=== PATIENT | female | born 2000 | race Two or more races ===

== ENCOUNTER 2019-12-14 16:06 | Emergency (ER) | payer SELFPAY ==
[~2019-12-14] VITALS: Ht 157.5 cm; Wt 73.2 kg
[2019-12-14 17:23] LABS: BASOPHILS # (AUTO) 0.04 x10^3/uL (0-0.3); BASOPHILS % (AUTO) 0 % (0-1); EOSINOPHILS # (AUTO) 0.07 x10^3/uL (0-0.8); EOSINOPHILS % (AUTO) 1 % (1-7); LYMPHOCYTES # (AUTO) 2.66 x10^3/uL (1-6.1); LYMPHOCYTES % (AUTO) 19 % (22-44); MD NO; MEAN CORPUSCULAR HEMOGLOBIN 22.8 pg (27.0-34.8); MEAN CORPUSCULAR HGB CONC 31.7 g/dL (32.4-35.8); MEAN PLATELET VOLUME 8.5 fL (7.4-10.4); MONOCYTES # (AUTO) 0.97 x10^3/uL (0-1.4); MONOCYTES % (AUTO) 7 % (2-9); NEUTROPHILS # (AUTO) 10.57 x10^3/uL (1.8-8.0); NEUTROPHILS % (AUTO) 74 % (42-75); PLATELET COUNT 479 x10^3/uL (130-400); RED BLOOD COUNT 5.38 x10^6/uL (3.82-5.3); RED CELL DISTRIBUTION WIDTH 15.9 % (9.6-15.2)
[2019-12-14 17:38] LABS: ALANINE AMINOTRANSFERASE 22 U/L (12-78); ALBUMIN 3.8 g/dL (3.4-5.0); ANION GAP 8 mmol/L (5-15); CALCIUM 8.6 mg/dL (8.5-10.1); CHLORIDE 107 mmol/L (98-107); CREATININE 0.77 mg/dL (0.55-1.02)
[2019-12-14 17:42] LABS: ALKALINE PHOSPHATASE 81 U/L (45-117); BILIRUBIN,TOTAL 0.4 mg/dL (0.2-1.0); TOTAL PROTEIN 7.9 g/dL (6.4-8.2)
[2019-12-14 17:50] LABS: CULTURE INDICATED? YES; MICROSCOPIC AUTO
[2019-12-14 18:40] VITALS: BP 101/69
--- NOTE | 2019-12-14 19:37 | NUR ---
nil x 1
--- NOTE | 2019-12-14 19:51 | NUR ---
NIL X 2 WHEN CALLED FOR ROOM.
--- NOTE | 2019-12-14 20:08 | NUR ---
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
--- NOTE | 2019-12-14 20:40 | NUR ---
ARTIST WOODBLOCK: THIS RN TO ATTEMPT TO CALL PT. BACK AFTER PT. ELOPED FROM ED LOBBY PT. HAD MANY BACTERIA IN URINE. NO PHONE NUMBER FOR PT. IN CHART, UNABLE TO CALL.
== END 2019-12-14 20:16 | disposition left against medical advice (07) ==
LOC: ED 20:10
DX: R10.32 Left lower quadrant pain (principal)
CPT/HCPCS: 36415; 80053; 81001; 84702; 85025; 87077; 87086; 87186; 99283